=== PATIENT | female | born 1960 | race Caucasian/White ===

== ENCOUNTER 2021-05-26 15:22 | Outpatient (CLI) | payer OTHER, SELFPAY ==
--- NOTE | ~2021-05-26 | CT_ITS ---
EXAMINATION: CT abdomen pelvis wo con DATE: 05/26/2021 16:06 INDICATION: Abdominal pain TECHNIQUE: Computed tomography (CT) of the abdomen and pelvis was performed without intravenous contr ast. The dose-length product was 279.18 mGy-cm. Automated exposure control and iterative reconstructi on technique were employed. COMPARISON: CT dated 11/12/2013. FINDINGS: Lung bases are unremarkable. Heart size normal. No significant pleural or pericardial effus ion. No significant vascular abnormality. No lymphadenopathy. Small fat-containing umbilical hernia. The liver, spleen, pancreas, adrenal glands and kidneys are unremarkable. Gallbladder is present. Sma ll fat-containing umbilical hernia. There is a small right adnexal cyst, likely ovarian. No significa nt free fluid in the pelvis. No free air. Diverticulosis without evidence for diverticulitis. Normal appendix. No acute bone or joint abnormality. IMPRESSION: 1. No acute abdominal abnormality. Reviewed, dictated and finalized at location A.
== END 2021-05-26 15:23 | disposition home or self-care (01) ==
PROVIDERS: PCP Family Medicine; Visit Provider Nurse Practitioner
DX: R10.9 Unspecified abdominal pain (principal)
CPT/HCPCS: 74176

== ENCOUNTER → 2023-01-14 08:11 | Outpatient (CLI) | payer OTHER, SELFPAY ==
--- NOTE | ~2023-01-14 | CT_ITS ---
EXAMINATION: CT lung screening DATE: 01/14/2023 08:28 INDICATION: History of smoking. Tobacco dependence. TECHNIQUE: Computed tomography (CT) of the chest was performed without intravenous contrast. The dose -length product was 82.99 mGy-cm. Automated exposure control and iterative reconstruction technique w ere employed. COMPARISON: None FINDINGS: Heart size normal. No significant pleural or pericardial effusion. No thoracic lymphadenopa thy. Severe emphysema. There is apical pleural thickening/scarring. There is 2 mm right upper lobe no dule. No endobronchial lesions. There is mild thoracic spondylosis. There is irregular shaped soft ti ssue in the lung apices extending inferiorly into the lung parenchyma, most likely scarring. There is no pneumothorax. IMPRESSION: 1. . Lung-RADS category 3: Probably benign. Further evaluation is recommended with noncontrast low-do se chest CT in 6 months. Reviewed, dictated and finalized at location B. EM ARCHITECT IMPRESSION: 1. . Lung-RADS category 3: Probably benign. Further evaluation is recommended w ith noncontrast low-dose chest CT in 6 months.
== END ==
PROVIDERS: PCP Family Medicine; Visit Provider Family Medicine
DX: Z12.2 Encounter for screening for malignant neoplasm of respiratory organs (principal); Z87.891 Personal history of nicotine dependence; R91.8 Other nonspecific abnormal finding of lung field
CPT/HCPCS: 71271

== ENCOUNTER 2023-02-08 00:02 | Day surgery (SDC) | payer OTHER, SELFPAY ==
[2023-01-26 13:16] VITALS: BMI 22.8
[2023-02-08 08:17] VITALS: BP 111/66; PULSE 84; RESP 16; TEMP 36.4; O2SAT 98
[2023-02-08] MEDS: LACTATED RINGERS 1,000 ML 150 ML IV CONT (08:19)
--- NOTE | 2023-02-08 08:48 | PM.HPGS ---
History of Present Illness History of Present Illness Consent: Risks, benefits, and alternatives have been discussed and questions answered. Patient agrees to proceed with procedure. Chief complaint: hx colon polyps Narrative: Faye Kent is a 62 year old female Presents for screening colonoscopy. Patient has a prior history of colon polyps removed in 2019. Patient states that her weight appetite bowel movements are normal. She states that she has had some bright red blood per rectum after preparation for colonoscopy. She is previously known to have hemorrhoids. Patient denies abdominal or rectal pain. Review of Systems Review of Systems: Review of systems noncontributory. [facility] Past Medical History Medical History Anxiety Depression History of colon polyps Insomnia Orthostatic hypotension Surgical History Surgical History H/O removal of cyst (~1999) b/l breasts Social History Social History Social History: with one adult daughter. Unemployed. 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 Gender identity (if verbalized by the patient): Female Sexual Orientation (if Verbalized by the Patient): Straight or Heterosexual Spiritual care concerns: No Meds Home Medications and Allergies Home Medications Medication Instructions Recorded Confirmed Type albuterol sulfate 90 mcg/actuation 2 puff inhalation QID #18 grams 02/27/20 02/08/23 Rx aerosol inhaler multivit with 1 tablet PO DAILY 08/13/20 01/26/23 History utxjlkbp-spfx-RJ-lutein 8 mg iron-400 mcg-300 mcg tablet (Multivitamin Women 50 Plus) umeclidinium 62.5 mcg-vilanterol 1 inh inhalation DAILY #90 ea 01/10/23 02/08/23 Rx 25 mcg/actuation powdr for inhalation (Anoro Ellipta) Allergies Allergy/AdvReac Type Severity Reaction Status Date / Time No Known Allergies Allergy Mild Verified 02/08/23 08:14 Vital Signs Vital Signs - 24 hr 02/08/23 08:17 Temperature 97.6 F Pulse Rate 84 Respiratory Rate 16 Blood Pressure 111/66 Pulse Oximetry 98 Oxygen Delivery Room Air Exam Narrative: Physical exam reveals patient be alert. Vital signs stable. HEENT exam is unremarkable. Patient is anicteric. Lungs are clear to auscultation and percussion. Heart is without murmur or extra sounds. Abdomen bowel sounds are present soft nontender with no organomegaly. Digital external rectal exam normal. Assessment and Plan Assessment and plan (1) History of colon polyps: Code(s): Z86.010 - Personal history of colonic polyps Status: Acute Assessment and Plan: Patient has a history of colon polyps. Plan for surveillance colonoscopy now consider this at 5 year intervals. High-fiber diet advised. If bright red blood per rectum persists hemorrhoid surgery may need to be considered in the future.
--- NOTE | 2023-02-08 08:54 | WPDANESEPPF ---
Anes - Initial Pre Proc Eval Procedure: Operation Date: 02/08/23 09:30 Proposed Procedures p Colonoscopy - Garland Hilliard MD Date/Time: 02/08/23 08:54 Surgeon: Garland Hilliard MD Pre Op Diagnosis: hx colon polyps Patient Data Age: 62 Gender: F Height: 1.57 m Weight: 56.7 kg Last Vital Signs Temp 97.6 F 02/08/23 08:17 Pulse 84 02/08/23 08:17 Resp 16 02/08/23 08:17 BP 111/66 02/08/23 08:17 Pulse Ox 98 02/08/23 08:17 O2 Del Method Room Air 02/08/23 08:17 Allergies Allergy/AdvReac Type Severity Reaction Status Date / Time No Known Allergies Allergy Mild Verified 02/08/23 08:14 Home Medications Medication Instructions Recorded Confirmed Type albuterol sulfate 90 mcg/actuation 2 puff inhalation QID #18 grams 02/27/20 02/08/23 Rx aerosol inhaler multivit with 1 tablet PO DAILY 08/13/20 01/26/23 History fyqjmsbm-qelc-EZ-lutein 8 mg iron-400 mcg-300 mcg tablet (Multivitamin Women 50 Plus) umeclidinium 62.5 mcg-vilanterol 1 inh inhalation DAILY #90 ea 01/10/23 02/08/23 Rx 25 mcg/actuation powdr for inhalation (Anoro Ellipta) Patient hx anesthesia problems: none Family hx anesthesia problems: none Results Review: All pre-operative results and documents have been reviewed as part of the pre-operative evaluation. [facility] Past Medical History Medical History Anxiety Depression History of colon polyps Insomnia Orthostatic hypotension Surgical History Surgical History H/O removal of cyst (~1999) b/l breasts Social History Social History Social History: with one adult daughter. Unemployed. 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 Gender identity (if verbalized by the patient): Female Sexual Orientation (if Verbalized by the Patient): Straight or Heterosexual Spiritual care concerns: No Anes - Eval Final PreProcedure Day of Procedure 02/08/23 08:54 Patient weight: normal Heart: regular rate and rhythm Lungs: clear to auscultation Airway: Mallampati scale class II Neurological: alert and oriented Last oral intake: >/= 8 hours ASA classification: II Emergent: no Anesthetic plan: proceed Anesthesia type and monitoring: general Results Review: All pre-operative results and documents have been reviewed as part of the pre-operative evaluation. Informed Consent: The patient's anesthetic plan and its attendant risks and benefits were discussed with the patient/family/POA. Questions were solicited and answers provided to the satisfaction of the patient/family/POA.
[2023-02-08] MEDS: SIMETHICONE ORAL SUSPENSION 20 MG/0.3 ML 30 ML BOTTLE 0.6 ML IRRIGATION (09:39)
[2023-02-08 09:54] VITALS: BP 107/70; PULSE 82; RESP 24; TEMP 36.4; O2SAT 98
[2023-02-08 10:04] VITALS: BP 113/77; PULSE 65; RESP 28; TEMP 36.4; O2SAT 98
[2023-02-08 10:14] VITALS: BP 132/88; PULSE 85; RESP 26; TEMP 36.4; O2SAT 98
[2023-02-08 10:17] VITALS: BP 124/84; PULSE 80; RESP 19; TEMP 36.4; O2SAT 98
== END 2023-02-08 10:19 | disposition home or self-care (01) ==
PROVIDERS: PCP Family Medicine; Visit Provider Internal Medicine Gastroenterology
PROC: 0DJD8ZZ Inspection of Lower Intestinal Tract, Via Natural or Artificial Opening Endoscopic (ICD-10-PCS; CPT 45378; principal; 2023-02-08 09:30)
DX: Z12.11 Encounter for screening for malignant neoplasm of colon (principal); D12.5 Benign neoplasm of sigmoid colon; K57.30 Diverticulosis of large intestine without perforation or abscess without bleeding; K64.8 Other hemorrhoids; Z79.51 Long term (current) use of inhaled steroids; Z87.891 Personal history of nicotine dependence
CPT/HCPCS: 45380; 88305; J2704; J7120

== ENCOUNTER 2023-06-16 12:42 | Outpatient (CLI) | payer OTHER, SELFPAY ==
--- NOTE | ~2023-06-16 | XR_ITS ---
XR cervical spine 4-5V 06/16/2023 12:54 Indication: Neck pain. Right arm pain and numbness. Procedure: 4 view cervical spine Comparison: No prior studies for comparison. Findings: There is degenerative anterolisthesis at C4-5. There is disc narrowing and endplate hypertr ophy at C5-6 and C6-7. There is moderate multilevel facet and uncinate hypertrophy. Lung apices are n ormal. Odontoid process is normal. Lateral masses normally aligned. No prevertebral soft tissue swell ing. Impression: 1: Moderate cervical spondylosis. Reviewed, dictated and finalized at location A. Impression: 1: Moderate cervical spondylosis.
== END 2023-06-16 12:43 ==
PROVIDERS: PCP Family Medicine; Visit Provider Family Medicine
DX: G89.29 Other chronic pain (principal); M54.12 Radiculopathy, cervical region; M43.02 Spondylolysis, cervical region
CPT/HCPCS: 72050

== ENCOUNTER 2023-09-20 09:40 | Day surgery (SDC) | payer OTHER, SELFPAY ==
[2023-09-16 11:27] VITALS: BMI 21.7
--- NOTE | ~2023-09-20 | XR_ITS ---
Indication:bilateral C4, C5 and C6 medial branch block TECHNIQUE: Fluoroscopy used during bilateral C4, C5 and C6 medial branch block performed by [Chaitanya Wisdom MD] on 09/20/2023. 68 seconds with 4 fluoroscopic images captured. FINDINGS: Correlate with procedure note. IMPRESSION: Fluoroscopy used during bilateral C4, C5 and C6 medial branch block. Reviewed, dictated and finalized at location A. IMPRESSION: Fluoroscopy used during bilateral C4, C5 and C6 medial branch block .
--- NOTE | 2023-09-20 05:55 | PM.HPGS ---
History of Present Illness History of Present Illness Consent: Risks, benefits, and alternatives have been discussed and questions answered. Patient agrees to proceed with procedure. Chief complaint: Cervical Radiculopathy Narrative: Faye Kent is a 62 year old female with chronic, recalcitrant and activity limiting axial neck pain related to cervical spondylosis and cervical facet syndrome despite maximal conservative therapy over the past several years here for bilateral cervical medial branch blocks for diagnostic/prognostic purposes prior to consideration of thermal RF ablation under fluoroscopy.. Review of Systems Review of Systems: All systems reviewed & are unremarkable except as noted in HPI and below (Prior evaluation 07/19/23) PMFSH Past Medical History Medical History Anxiety Chronic neck pain Depression History of colon polyps Insomnia Orthostatic hypotension Surgical History Surgical History H/O removal of cyst (~1999) b/l breasts Social History Social History Social History: with one adult daughter. Unemployed. Smoking packs per day: 1 Smoking cigarettes per day: 20.0 Years smoked: 40 Smoking pack-years: 40.00 Smoking status: Former smoker Tobacco type: cigarettes Second hand tobacco smoke exposure: No Smoking end date: 02/23/18 Alcohol intake: unknown Substance use: never Substance use type: does not use Last use: about two years ago Lack of Transportation: No Lack of Food: Never True Current Housing: I Have Housing Concerned About Future Housing: No Difficulty Paying Gas/Electric Bills: No Difficulty Paying for Meds: No Currently Unemployed: No Education: High School Diploma/GED Difficulty w/ Childcare or Family Care: No Living arrangements: with family 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 Gender identity (if verbalized by the patient): Female Sexual Orientation (if Verbalized by the Patient): Straight or Heterosexual Spiritual care concerns: No Agree to blood products: Yes Meds Home Medications and Allergies Home Medications Medication Instructions Recorded Confirmed Type albuterol sulfate 2.5 mg/3 mL 2.5 mg (3 mL) inhalation Q4-6H PRN 06/15/23 09/16/23 Rx (0.083 %) solution for nebulization shortness of breath or wheezing #90 mL albuterol sulfate 90 mcg/actuation 2 puff inhalation QID PRN 06/15/23 09/16/23 Rx aerosol inhaler shortness of breath or wheezing #18 grams duloxetine 30 mg capsule,delayed 60 mg PO QHS #180 caps 08/10/23 09/16/23 Rx release umeclidinium 62.5 mcg-vilanterol 1 inh inhalation DAILY #90 ea 09/12/23 09/16/23 Rx 25 mcg/actuation powdr for inhalation (Anoro Ellipta) Allergies Allergy/AdvReac Type Severity Reaction Status Date / Time No Known Allergies Allergy Mild Verified 09/16/23 11:27 Exam Const: General: cooperative, healthy appearing, comfortable and no acute distress Nutritional Appearance: average body habitus Orientation/consciousness: patient oriented x3 HENMT: Head: normal to inspection Ears: hearing grossly normal bilaterally Face and sinus: normal facial exam Eyes: General: appearance normal, both eyes and all related structures Neck: Neck: normal visual inspection Chest: Chest palpation & inspection: normal inspection of the chest Resp: Effort & Inspection: normal respiratory effort Auscultation: clear to auscultation bilaterally Cardio: Rate: regular rate Rhythm: regular rhythm Peripheral pulses: Peripheral pulses 2+ throughout GI: Inspection: normal to inspection Back/Spine/Pelvis: Back: no CVA tenderness Cervical Spine: pain with cervical ROM and Cervical spine tenderness (bilateral mid to lower cervical facets.) Thoraci
[2023-09-20 10:49] VITALS: BP 104/44; PULSE 73; RESP 20; TEMP 36.8; O2SAT 99
[2023-09-20 13:05] VITALS: BP 118/76; PULSE 87; RESP 28; O2SAT 99
[2023-09-20 13:15] VITALS: BP 116/76; PULSE 72; RESP 17; O2SAT 99
[2023-09-20] MEDS: BUPivacaine HCL 0.5% 10 ML AMP 5 ML INFILTRATE (13:20)
[2023-09-20] MEDS: LIDOCAINE HCL 1% PF INJ 5 ML VIAL 4 ML INFILTRATE (13:20)
[2023-09-20 13:27] VITALS: BP 121/83; PULSE 69; RESP 18; O2SAT 100
--- NOTE | 2023-09-23 15:38 | W.PM.PROC2 ---
Procedure Note - Detailed Date of Procedure 09/20/23 Pre-op Diagnosis Cervical Spondylosis, Cervicalgia Post-op Diagnosis Same Procedure Performed Bilateral C4, C5, C6 medial branch blocks addressing the bilateral C4-5, C5-6 facet joints under fluoroscopy. Surgeon Flavio Wisdom MD Anesthesia Local Description of Procedure INFORMED CONSENT: Risks, benefits and alternatives to the procedure were discussed in detail with the patient who expressed explicit understanding and consent to proceed. Patient was informed verbally and in written form regarding the risks associated with the procedure including the low risk of serious infection, bleeding/bruising, allergic reaction, nerve or organ injury, paralysis, procedural site pain or discomfort, worsening pain and/or mobility, failure to treat and/or disfigurement. The patient expressed explicit understanding and consent to proceed. All materials required for the procedure were available prior to procedure start. Site and side were marked prior to procedure and confirmed in the presence of the patient. PROCEDURE IN DETAIL: The patient was brought to the procedural suite and placed in the prone position with head stabilized with a ProneView pillow. Patient was made comfortable with use of pillows under the head/chest, hips and ankles. Skin overlying the injection site on the affected side(s) was prepared broadly with ChloraPrep applicator and draped in a sterile manner. Aseptic technique was used throughout. The endplates of the vertebral bodies at the site(s) of interest were aligned in the AP view. Ipsilateral oblique angulation was utilized to optimize visualization of the pars interarticularis at each target site. Local anesthesia was established by infiltration with approximately 5 mL of 1% lidocaine via a 1-1/2 inch 27-gauge needle. A 25-gauge 3.5 inch Quincke spinal needle was advanced until the needle tip contacted the periosteum of the pars interarticularis at the target site, right C4. Lateral view was utilized to confirm the appropriate placement of the needle tip just anterior to the center point of the interarticularis. In the Lateral view, 0.25 mL of Omnipaque 300 contrast medium was injected after negative aspiration for CSF, blood or other bodily fluid, showing appropriate extra-articular spread of contrast without evidence of intravascular, foraminal or intrathecal placement. A 0.25 mL solution of 0.5% PF bupivacaine was injected after negative repeat aspiration. Appropriate spread of the injectate was confirmed with washout of previously injected contrast. No parasthesias were elicited. Needle was removed completely intact without difficulty. The same exact procedure was repeated for all remaining levels on the ipsilateral side, right C6,C7 medial branches, modified as necessary to accommodate for the new target location with identical findings and results and no evidence of complication. The same exact procedure was repeated for all remaining levels on the contralateral side, left C5, C6, C7 medial branches, modified as necessary to accommodate for the new target location with identical findings and results and no evidence of complication. Images were saved and documented in the patient chart. Patient's skin was cleansed and sterile bandage applied. The patient tolerated the procedure well. The patient was transported to the recovery area in stable condition where they were observed for an appropriate amount of time prior to discharge, without evidence of complication. Patient was instructed on the appropriate completion of a pain diary over the next 12-24 hours. The patient was instructed to avoid excessive activity for the next 48 hours, including climbing and frequent use of stairs. Showers only for 48 hours. They were instructed not to drive or operate heavy machinery for 24 hours. They are to monitor for severe headaches, fevers, chills, night sweats, erythema/swelling at the site or any other signs
== END 2023-09-20 13:50 | disposition home or self-care (01) ==
PROVIDERS: PCP Family Medicine; Visit Provider Anesthesiology Pain Medicine
PROC: (CPT 64490; principal; 2023-09-20 11:30)
DX: M47.812 Spondylosis without myelopathy or radiculopathy, cervical region (principal); M54.2 Cervicalgia
CPT/HCPCS: 64490; 64491; 99199

== ENCOUNTER 2023-10-18 08:16 | Day surgery (SDC) | payer OTHER, SELFPAY ==
[2023-10-11 12:04] VITALS: BMI 22.8
--- NOTE | ~2023-10-18 | XR_ITS ---
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 TECHNIQUE: 12 fluoroscopic images of the cervical spine were obtained during bilateral C4, C5, C6 med ial branch block. I was not present during the procedure. Fluoroscopy exposure time was 106.6 seconds . Air Kerma 8.77 mGy. COMPARISON: 09/20/2023 FINDINGS: Deputy approach the posterior lateral aspect of C4, C5, and C6, followed by contrast injection. IMPRESSION: Fluoroscopic documentation of bilateral C4, C5, C6 medial branch block. Please refer to the operative note for complete procedural details . Reviewed, dictated and finalized at location K. INJECTION SERVICER
--- NOTE | 2023-10-18 06:40 | WPDHPUPDATE1 ---
History and Physical Update Update Date/Time: 10/18/23 06:40 History and Physical has been reviewed, including an updated exam of the patient. There are NO changes in the patient's condition. Risks, benefits, and alternatives have been discussed and questions answered. Patient agrees to proceed with procedure.
[2023-10-18 09:00] VITALS: BP 108/59; PULSE 70; RESP 20; TEMP 36.6; O2SAT 100
--- NOTE | 2023-10-18 09:19 | W.PM.PROC2 ---
Procedure Note - Detailed Date of Procedure 10/18/23 Pre-op Diagnosis Cervical Spondylosis, chronic cervicalgia Post-op Diagnosis Same Procedure Performed bilateral C4, C5, C6 medial branch blocks (# 2) addressing the bilateral C4-5, C5-6 facet joints under fluoroscopic guidance with contrast trial. Surgeon Flavio Wisdom MD Anesthesia Local Description of Procedure INFORMED CONSENT: Risks, benefits and alternatives to the procedure were discussed in detail with the patient who expressed explicit understanding and consent to proceed. Patient was informed verbally and in written form regarding the risks associated with the procedure including the low risk of serious infection, bleeding/bruising, allergic reaction, nerve or organ injury, paralysis, procedural site pain or discomfort, worsening pain and/or mobility, failure to treat and/or disfigurement. The patient expressed explicit understanding and consent to proceed. All materials required for the procedure were available prior to procedure start. Site and side were marked prior to procedure and confirmed in the presence of the patient. PROCEDURE IN DETAIL: The patient was brought to the procedural suite and placed in the prone position with head stabilized with a ProneView pillow. Patient was made comfortable with use of pillows under the head/chest, hips and ankles. Skin overlying the injection site on the affected side(s) was prepared broadly with ChloraPrep applicator and draped in a sterile manner. Aseptic technique was used throughout. The endplates of the vertebral bodies at the site(s) of interest were aligned in the AP view. Ipsilateral oblique angulation was utilized to optimize visualization of the pars interarticularis at each target site. Local anesthesia was established by infiltration with approximately 5 mL of 1% lidocaine via a 1-1/2 inch 27-gauge needle. A 25-gauge 3.5 inch Quincke spinal needle was advanced until the needle tip contacted the periosteum of the pars interarticularis at the target site, right C4. Lateral view was utilized to confirm the appropriate placement of the needle tip just anterior to the center point of the interarticularis. In the Lateral view, 0.25 mL of Omnipaque 300 contrast medium was injected after negative aspiration for CSF, blood or other bodily fluid, showing appropriate extra-articular spread of contrast without evidence of intravascular, foraminal or intrathecal placement. A 0.25 mL solution of 2.0% preservative-free lidocaine was injected after negative repeat aspiration. Appropriate spread of the injectate was confirmed with washout of previously injected contrast. No parasthesias were elicited. Needle was removed completely intact without difficulty. The same exact procedure was repeated for all remaining levels on the ipsilateral side, right C5, C6 medial branches, modified as necessary to accommodate for the new target location with identical findings and results and no evidence of complication. The same exact procedure was repeated for all remaining levels on the contralateral side, left C4, C5, C6 medial branches, modified as necessary to accommodate for the new target location with identical findings and results and no evidence of complication. Images were saved and documented in the patient chart. Patient's skin was cleansed and sterile bandage applied. The patient tolerated the procedure well. The patient was transported to the recovery area in stable condition where they were observed for an appropriate amount of time prior to discharge, without evidence of complication. Patient was instructed on the appropriate completion of a pain diary over the next 12-24 hours. The patient was instructed to avoid excessive activity for the next 48 hours, including climbing and frequent use of stairs. Showers only for 48 hours. They were instructed not to drive or operate heavy machinery for 24 hours. They are to monitor for severe headaches, fevers
[2023-10-18 09:30] VITALS: BP 129/66; PULSE 63; RESP 12; O2SAT 98
[2023-10-18 09:35] VITALS: BP 113/20; PULSE 63; RESP 19; O2SAT 98
[2023-10-18 09:40] VITALS: BP 111/73; PULSE 65; RESP 23; O2SAT 98
[2023-10-18] MEDS: LIDOCAINE HCL 2% PF INJ 5 ML VIAL INFILTRATE (09:48)
[2023-10-18] MEDS: LIDOCAINE HCL 1% PF INJ 5 ML VIAL INFILTRATE (09:48)
[2023-10-18 09:50] VITALS: BP 127/77; PULSE 72; RESP 16; O2SAT 98
[2023-10-18 10:00] VITALS: BP 119/69; PULSE 71; RESP 18; O2SAT 100
== END 2023-10-18 10:04 | disposition home or self-care (01) ==
LOC: ASC 08:37
PROVIDERS: PCP Family Medicine; Visit Provider Anesthesiology Pain Medicine
PROC: (CPT 64490; principal; 2023-10-18 09:45)
DX: M47.812 Spondylosis without myelopathy or radiculopathy, cervical region (principal); M54.2 Cervicalgia
CPT/HCPCS: 64490; 64491; 64492; 99199

== ENCOUNTER 2023-12-20 05:51 | Day surgery (SDC) | payer OTHER, SELFPAY ==
[2023-12-13 11:53] VITALS: BMI 22.4
--- NOTE | 2023-12-19 16:58 | WPDANESEPPF ---
Anes - Initial Pre Proc Eval Procedure: Operation Date: 12/20/23 07:30 Proposed Procedures p Left C4, C5, C6 Medial Branch Thermal Radiofrequency Ablation under Fluoroscopic Guidance - Flavio Wisdom MD Date/Time: 12/19/23 16:58 Surgeon: Flavio Wisdom MD Pre Op Diagnosis: Cervical Spondylosis, cervicalgia Patient Data Age: 63 Gender: F Height: 1.55 m Weight: 54 kg Allergies Allergy/AdvReac Type Severity Reaction Status Date / Time No Known Allergies Allergy Mild Verified 12/20/23 06:20 Home Medications Medication Instructions Recorded Confirmed Type albuterol sulfate 2.5 mg/3 mL 2.5 mg (3 mL) inhalation Q4-6H PRN 06/15/23 12/13/23 Rx (0.083 %) solution for nebulization shortness of breath or wheezing #90 mL albuterol sulfate 90 mcg/actuation 2 puff inhalation QID PRN 06/15/23 12/20/23 Rx aerosol inhaler shortness of breath or wheezing #18 grams duloxetine 30 mg capsule,delayed 30 mg PO DAILY 10/11/23 12/20/23 History release umeclidinium 62.5 mcg-vilanterol 1 inh inhalation DAILY #90 ea 11/16/23 12/20/23 Rx 25 mcg/actuation powdr for inhalation (Anoro Ellipta) Patient hx anesthesia problems: none Family hx anesthesia problems: none Results Review: All pre-operative results and documents have been reviewed as part of the pre-operative evaluation. [facility] Past Medical History Medical History (Updated 12/19/23 @ 17:00 by Ash Oviedo DO) Anxiety Chronic neck pain COPD (chronic obstructive pulmonary disease) Depression History of colon polyps Insomnia Orthostatic hypotension Surgical History Surgical History H/O removal of cyst (~1999) b/l breasts Social History Social History Social History: with one adult daughter. Unemployed. Smoking packs per day: 1 Smoking cigarettes per day: 20.0 Years smoked: 40 Smoking pack-years: 40.00 Smoking status: Former smoker Tobacco type: cigarettes Second hand tobacco smoke exposure: No Smoking end date: 02/23/18 Alcohol intake: unknown Substance use: unknown Substance use type: does not use Last use: about two years ago Lack of Transportation: No Lack of Food: Never True Current Housing: I Have Housing Concerned About Future Housing: No Difficulty Paying Gas/Electric Bills: No Difficulty Paying for Meds: No Currently Unemployed: No Education: High School Diploma/GED Difficulty w/ Childcare or Family Care: No Living arrangements: with family 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 Gender identity (if verbalized by the patient): Female Sexual Orientation (if Verbalized by the Patient): Straight or Heterosexual Spiritual care concerns: No Agree to blood products: Yes Anes - Eval Final PreProcedure Day of Procedure 12/19/23 16:58 Patient weight: normal Heart: regular rate and rhythm Lungs: clear to auscultation and normal air movement Airway: Mallampati scale class II Neurological: alert and oriented Last oral intake: >/= 8 hours ASA classification: III Emergent: no Anesthetic plan: proceed Anesthesia type and monitoring: general GIVS and standard monitoring Results Review: All pre-operative results and documents have been reviewed as part of the pre-operative evaluation. Informed Consent: The patient's anesthetic plan and its attendant risks and benefits were discussed with the patient/family/POA. Questions were solicited and answers provided to the satisfaction of the patient/family/POA.
--- NOTE | ~2023-12-20 | XR_ITS ---
EXAMINATION: XR fluoroscopy no charge DATE: 12/20/2023 7:45 MUSIC SOUND LIGHT TECHNICIAN INDICATION: LEFT C4,C5,C6 THERMAL RAD ABLATION . TECHNIQUE: 8 fluoroscopic images and 6 cine clips of the cervical spine were obtained during left C4, C5, C6 with thermal ablation performed by the surgeon. I was not present during the procedure. Fluor oscopy exposure time was 25.7 seconds. Air Kerma 1.32 mGy. COMPARISON: None FINDINGS: [place] approach the posterior lateral aspect of the C4-C6 vertebral bodies. IMPRESSION: Fluoroscopic documentation of left C4, C5, C6 thermal ablation. Please refer to the operative note fo r complete procedural details . Reviewed, dictated and finalized at location K. C SOUND LIGHT TECHNICIAN IMPRESSION: Fluoroscopic documentation of left C4, C5, C6 thermal ablation. Please refer to the operative note for complete procedural details .
[2023-12-20 06:24] VITALS: BP 100/75; PULSE 73; RESP 20; TEMP 36.4; O2SAT 100
[2023-12-20] MEDS: LACTATED RINGERS 1,000 ML 30 ML IV CONT (06:32)
--- NOTE | 2023-12-20 06:37 | PM.HPGS ---
History of Present Illness History of Present Illness Consent: Risks, benefits, and alternatives have been discussed and questions answered. Patient agrees to proceed with procedure. Chief complaint: Cervical Spondylosis, cervicalgia Narrative: Faye Kent is a 63 year old female with chronic, recalcitrant and disabling Left cervical pain secondary to degenerative spondylosis with failure to respond to aggressive conservative measures including PT, oral and topical analgesics, opioid and nonopioid analgesics, rest, time and activity/behavioral modification over the past 1-2 years who presents for thermal radiofrequency ablation of the left C4, C5, C6 medial branches to denervate the left C4-5, C5-6 facet joints following appropriate duration of response respectively in both pain and activity tolerance/range of motion following a series of 2 diagnostic/prognostic medial branch blocks under fluoroscopic guidance and with contrast control. Review of Systems Review of Systems: Patient denies any new infectious, allergic, cardiopulmonary, neurologic or constitutional symptoms or changes in activity tolerance or exercise capacity including new or progressive SOB/JENKINS, peripheral edema, productive cough, dysuria, nausea/vomiting, diarrhea, weight change, fevers/chills/night sweats, new or progressive neurologic deficit, cognitive or mood changes since last seen, except as documented in the HPI. All systems reviewed & are unremarkable except as noted in HPI and below PMFSH Past Medical History Medical History (Updated 12/19/23 @ 17:00 by Ash Oviedo DO) Anxiety Chronic neck pain COPD (chronic obstructive pulmonary disease) Depression History of colon polyps Insomnia Orthostatic hypotension Surgical History Surgical History H/O removal of cyst (~1999) b/l breasts Social History Social History Social History: with one adult daughter. Unemployed. Smoking packs per day: 1 Smoking cigarettes per day: 20.0 Years smoked: 40 Smoking pack-years: 40.00 Smoking status: Former smoker Tobacco type: cigarettes Second hand tobacco smoke exposure: No Smoking end date: 02/23/18 Alcohol intake: unknown Substance use: unknown Substance use type: does not use Last use: about two years ago Lack of Transportation: No Lack of Food: Never True Current Housing: I Have Housing Concerned About Future Housing: No Difficulty Paying Gas/Electric Bills: No Difficulty Paying for Meds: No Currently Unemployed: No Education: High School Diploma/GED Difficulty w/ Childcare or Family Care: No Living arrangements: with family 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 Gender identity (if verbalized by the patient): Female Sexual Orientation (if Verbalized by the Patient): Straight or Heterosexual Spiritual care concerns: No Agree to blood products: Yes Meds Home Medications and Allergies Home Medications Medication Instructions Recorded Confirmed Type albuterol sulfate 2.5 mg/3 mL 2.5 mg (3 mL) inhalation Q4-6H PRN 06/15/23 12/13/23 Rx (0.083 %) solution for nebulization shortness of breath or wheezing #90 mL albuterol sulfate 90 mcg/actuation 2 puff inhalation QID PRN 06/15/23 12/20/23 Rx aerosol inhaler shortness of breath or wheezing #18 grams duloxetine 30 mg capsule,delayed 30 mg PO DAILY 10/11/23 12/20/23 History release umeclidinium 62.5 mcg-vilanterol 1 inh inhalation DAILY #90 ea 11/16/23 12/20/23 Rx 25 mcg/actuation powdr for inhalation (Anoro Ellipta) Allergies Allergy/AdvReac Type Severity Reaction Status Date / Time No Known Allergies Allergy Mild Verified 12/20/23 06:20 Vital Signs Vital Signs - 24 hr 12/20/23 06:24 Temperature 97.6 F Pulse Rate 73 Respirato
--- NOTE | 2023-12-20 06:44 | WPDHPUPDATE1 ---
History and Physical Update Update Date/Time: 12/20/23 06:44 History and Physical has been reviewed, including an updated exam of the patient. There are NO changes in the patient's condition. Risks, benefits, and alternatives have been discussed and questions answered. Patient agrees to proceed with procedure.
--- NOTE | 2023-12-20 06:45 | W.PM.PROC2 ---
Procedure Note - Detailed Date of Procedure 12/20/23 Pre-op Diagnosis Cervical Spondylosis, cervicalgia Post-op Diagnosis Same Procedure Performed left C4, C5, C6 medial branch thermal radiofrequency ablation denervating the left C4-5, C5-6 facet joints under fluoroscopic guidance. Surgeon Flavio Wisdom MD Anesthesia MAC and Local Description of Procedure INFORMED CONSENT: Risks, benefits and alternatives to the procedure were discussed in detail with the patient who expressed explicit understanding and consent to proceed. Patient was informed verbally and in written form regarding the risks associated with the procedure including the low risk of serious infection, bleeding/bruising, allergic reaction, nerve or organ injury, paralysis, procedural site pain or discomfort, worsening pain and/or mobility, failure to treat and/or disfigurement. The patient expressed explicit understanding and consent to proceed. All materials required for the procedure were available prior to procedure start. Site and side was marked prior to procedure and confirmed in the presence of the patient. PROCEDURE IN DETAIL: The patient was brought to the procedural suite and placed in the prone position with head stabilized with a ProneView pillow. Patient was made comfortable with use of pillows under the head/chest, hips and ankles. Skin overlying the injection site on the affected side(s) was prepared broadly with ChloraPrep applicator and draped in a sterile manner. Aseptic technique was used throughout. The endplates of the vertebral bodies at the site(s) of interest were aligned in the AP view. Ipsilateral oblique angulation was utilized to optimize visualization of the pars interarticularis at each target site. Local anesthesia was established by infiltration with approximately 5 mL of 1% lidocaine via a 1-1/2 inch 27-gauge needle. An 18-gauge 100mm RF needle with curved 10mm active tip was advanced in the AP view until the needle tip contacted the periosteum of the pars interarticularis at the target site, left C4 parallel to the course of the targeted branch. Lateral view was utilized to adjust and confirm the appropriate placement of the needle tip just anterior to the center point of the interarticularis, bisecting the distance between adjacent joint spaces. The appropriately-sized RF cannula was inserted into the RF needle and motor stimulation performed with no subjective or objective evidence of recruited muscle activity with stimulation up to 3.0 volts at a frequency of 2Hz. 0.5 mL solution of 2.0% PF lidocaine was injected after negative aspiration. Grounding electrode in place and functioning. After a 90s pause, lesioning was performed to 90 degrees centigrade for 90s ensuring lack of symptoms in the extremity throughout. Needle was withdrawn approcimately 1-2 mm and rotated 180 degrees. Lesioning repeated in a similar manner. Patient tolerated this well. No parasthesias were elicited. Needle was removed completely intact without difficulty. The same procedure was repeated for all intended levels/ structures on the ipsilateral side, left C5, C6, with identical methodology, modified to compensate for new location, with similar results and no evidence of complication. Patient tolerated this well. Images were saved and documented in the patient chart. Patient's skin was cleaned and sterile bandage applied. The patient tolerated the procedure well. The patient was transported to the recovery area in stable condition where they were observed for an appropriate amount of time prior to discharge, without evidence of complication. The patient was instructed to avoid excessive activity for the next 48 hours, including overhead work, reaching and device/computer usage. Showers only for 48 hours. They were instructed not to drive or operate heavy machinery for 24 hours. They are to monitor for severe headaches, fevers, chills, night sweats, erythema/swelling at the site or any ot
[2023-12-20] MEDS: LIDOCAINE HCL 2% PF INJ 5 ML VIAL INFILTRATE (07:50)
[2023-12-20] MEDS: BUPivacaine HCL 0.5% 10 ML AMP 5 ML INFILTRATE (08:06)
[2023-12-20] MEDS: LIDOCAINE HCL 1% PF INJ 5 ML VIAL XX (08:06)
[2023-12-20 08:20] VITALS: BP 90/66; PULSE 74; RESP 16; O2SAT 98
--- NOTE | 2023-12-20 08:25 | WPDANESPN ---
Anes - Prog Note Post-Op Date/Time: 12/20/23 08:25 Cardiovascular status: normal Respiratory status: normal Airway patency: baseline Mental status: baseline Post-Op hydration status: normal Vital Signs: Last Vital Signs Temp 36.4 C 12/20/23 06:24 Pulse 73 12/20/23 06:24 Resp 20 12/20/23 06:24 BP 100/75 12/20/23 06:24 Pulse Ox 100 12/20/23 06:24 O2 Del Method Room Air 12/20/23 06:24 Pain Score (VAS): 0 Post-procedural complaints: none Patient Feedback: Patient satisfied with anesthetic care. Other Findings: Patient vital signs back to baseline. Patient denies nausea and vomiting. Patient's pain under control. Patient OK for discharge.
[2023-12-20 08:43] VITALS: BP 99/72; PULSE 80; RESP 16; O2SAT 97
[2023-12-20 08:55] VITALS: BP 108/71; PULSE 70; RESP 16; O2SAT 98
[2023-12-20] MEDS: oxyCODONE HCL (*CRX) 5 MG TAB IR PO (08:55)
== END 2023-12-20 09:03 | disposition home or self-care (01) ==
PROVIDERS: PCP Family Medicine; Visit Provider Anesthesiology Pain Medicine
PROC: (CPT 64633; principal; 2023-12-20 07:30)
DX: M47.812 Spondylosis without myelopathy or radiculopathy, cervical region (principal); M54.2 Cervicalgia
CPT/HCPCS: 64633; 64634; 99199

== ENCOUNTER 2023-12-27 05:51 | Day surgery (SDC) | payer OTHER, SELFPAY ==
[2023-12-21 14:05] VITALS: BMI 24.0
--- NOTE | ~2023-12-27 | XR_ITS ---
EXAMINATION: XR fluoroscopy no charge INDICATION: Abnormal radiofrequency ablation on the right at C4, C5, and C6 TECHNIQUE: Seven intraoperative fluoroscopic images are submitted for review. Total fluoroscopic time is 19.6 seconds. COMPARISON: None available FINDINGS: Fluoroscopic images demonstrate needles at the level of the C4, C5, and C6 pedicles. Please refer to procedure note for full details. IMPRESSION: 1. Please refer to procedure note for full details. Reviewed, dictated and finalized at location L. 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
[2023-12-27 06:17] VITALS: BP 111/81; PULSE 69; RESP 20; TEMP 36.6; O2SAT 99
--- NOTE | 2023-12-27 07:12 | WPDANESEPPF ---
Anes - Initial Pre Proc Eval Procedure: Operation Date: 12/27/23 07:30 Proposed Procedures p Right C4, C5, C6 Medial Branch Thermal Radiofrequency Ablation under Fluoroscopic Guidance - Flavio Wisdom MD Date/Time: 12/27/23 07:12 Surgeon: Flavio Wisdom MD Pre Op Diagnosis: Cervical Spondylosis, Cervicalgia Patient Data Age: 63 Gender: F Height: 1.55 m Weight: 57.3 kg Allergies Allergy/AdvReac Type Severity Reaction Status Date / Time No Known Allergies Allergy Mild Verified 12/27/23 06:19 Home Medications Medication Instructions Recorded Confirmed Type albuterol sulfate 2.5 mg/3 mL 2.5 mg (3 mL) inhalation Q4-6H PRN 06/15/23 12/27/23 Rx (0.083 %) solution for nebulization shortness of breath or wheezing #90 mL albuterol sulfate 90 mcg/actuation 2 puff inhalation QID PRN 06/15/23 12/27/23 Rx aerosol inhaler shortness of breath or wheezing #18 grams duloxetine 30 mg capsule,delayed 30 mg PO DAILY 10/11/23 12/27/23 History release umeclidinium 62.5 mcg-vilanterol 1 inh inhalation DAILY #90 ea 11/16/23 12/27/23 Rx 25 mcg/actuation powdr for inhalation (Anoro Ellipta) Patient hx anesthesia problems: none Family hx anesthesia problems: none Results Review: All pre-operative results and documents have been reviewed as part of the pre-operative evaluation. [facility] Past Medical History Medical History Anxiety Chronic neck pain COPD (chronic obstructive pulmonary disease) Depression History of colon polyps Insomnia Orthostatic hypotension Surgical History Surgical History H/O removal of cyst (~1999) b/l breasts Social History Social History Social History: with one adult daughter. Unemployed. Smoking packs per day: 1 Smoking cigarettes per day: 20.0 Years smoked: 40 Smoking pack-years: 40.00 Smoking status: Former smoker Tobacco type: cigarettes Second hand tobacco smoke exposure: No Smoking end date: 02/23/18 Alcohol intake: never Substance use: never Substance use type: does not use Last use: about two years ago Lack of Transportation: No Lack of Food: Never True Current Housing: I Have Housing Concerned About Future Housing: No Difficulty Paying Gas/Electric Bills: No Difficulty Paying for Meds: No Currently Unemployed: No Education: High School Diploma/GED Difficulty w/ Childcare or Family Care: No Living arrangements: with family 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 Gender identity (if verbalized by the patient): Female Sexual Orientation (if Verbalized by the Patient): Straight or Heterosexual Spiritual care concerns: No Agree to blood products: Yes Anes - Eval Final PreProcedure Day of Procedure 12/27/23 07:12 Patient weight: normal Heart: regular rate and rhythm Lungs: decreased breath sounds Airway: Mallampati scale class II Neurological: alert and oriented Last oral intake: >/= 8 hours ASA classification: III Emergent: no Anesthetic plan: proceed Anesthesia type and monitoring: general GIVS and standard monitoring Results Review: All pre-operative results and documents have been reviewed as part of the pre-operative evaluation. Informed Consent: The patient's anesthetic plan and its attendant risks and benefits were discussed with the patient/family/POA. Questions were solicited and answers provided to the satisfaction of the patient/family/POA.
--- NOTE | 2023-12-27 07:13 | PM.HPGS ---
History of Present Illness History of Present Illness Consent: Risks, benefits, and alternatives have been discussed and questions answered. Patient agrees to proceed with procedure. Chief complaint: Cervical Spondylosis, Cervicalgia Narrative: Faye Kent is a 63 year old female with chronic, recalcitrant and disabling right Cervical pain secondary to degenerative spondylosis with failure to respond to aggressive conservative measures including PT, oral and topical analgesics, opioid and nonopioid analgesics, rest, time and activity/behavioral modification over the past 1-2 years who presents for thermal radiofrequency ablation of the right C4, C5, C6 medial branches to address the right C4-5, C5-6 facet joints under fluoroscopic guidance. Review of Systems Review of Systems: Patient denies any new infectious, allergic, cardiopulmonary, neurologic or constitutional symptoms or changes in activity tolerance or exercise capacity including new or progressive SOB/JENKINS, peripheral edema, productive cough, dysuria, nausea/vomiting, diarrhea, weight change, fevers/chills/night sweats, new or progressive neurologic deficit, cognitive or mood changes since last seen, except as documented in the HPI. All systems reviewed & are unremarkable except as noted in HPI and below PMFSH Past Medical History Medical History Anxiety Chronic neck pain COPD (chronic obstructive pulmonary disease) Depression History of colon polyps Insomnia Orthostatic hypotension Surgical History Surgical History H/O removal of cyst (~2000) b/l breasts Social History Social History Social History: with one adult daughter. Unemployed. Smoking packs per day: 1 Smoking cigarettes per day: 20.0 Years smoked: 40 Smoking pack-years: 40.00 Smoking status: Former smoker Tobacco type: cigarettes Second hand tobacco smoke exposure: No Smoking end date: 02/23/18 Alcohol intake: never Substance use: never Substance use type: does not use Last use: about two years ago Lack of Transportation: No Lack of Food: Never True Current Housing: I Have Housing Concerned About Future Housing: No Difficulty Paying Gas/Electric Bills: No Difficulty Paying for Meds: No Currently Unemployed: No Education: High School Diploma/GED Difficulty w/ Childcare or Family Care: No Living arrangements: with family 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 Gender identity (if verbalized by the patient): Female Sexual Orientation (if Verbalized by the Patient): Straight or Heterosexual Spiritual care concerns: No Agree to blood products: Yes Meds Home Medications and Allergies Home Medications Medication Instructions Recorded Confirmed Type albuterol sulfate 2.5 mg/3 mL 2.5 mg (3 mL) inhalation Q4-6H PRN 06/15/23 12/27/23 Rx (0.083 %) solution for nebulization shortness of breath or wheezing #90 mL albuterol sulfate 90 mcg/actuation 2 puff inhalation QID PRN 06/15/23 12/27/23 Rx aerosol inhaler shortness of breath or wheezing #18 grams duloxetine 30 mg capsule,delayed 30 mg PO DAILY 10/11/23 12/27/23 History release umeclidinium 62.5 mcg-vilanterol 1 inh inhalation DAILY #90 ea 11/16/23 12/27/23 Rx 25 mcg/actuation powdr for inhalation (Anoro Ellipta) Allergies Allergy/AdvReac Type Severity Reaction Status Date / Time No Known Allergies Allergy Mild Verified 12/27/23 06:19 Exam Narrative: The patient's physical exam is essentially unchanged from prior examination on 10/25/2023. Specifically, patient demonstrates normal lung capacity, tidal volume and respiratory rate without wheezes, crackles, rales or rubs. Heart rate and rhythm are regular without murmurs,
[2023-12-27] MEDS: LACTATED RINGERS 1,000 ML 30 ML IV CONT (07:17)
--- NOTE | 2023-12-27 07:17 | WPDHPUPDATE1 ---
History and Physical Update Update Date/Time: 12/27/23 07:17 History and Physical has been reviewed, including an updated exam of the patient. There are NO changes in the patient's condition. Risks, benefits, and alternatives have been discussed and questions answered. Patient agrees to proceed with procedure.
--- NOTE | 2023-12-27 07:17 | W.PM.PROC2 ---
Procedure Note - Detailed Date of Procedure 12/27/23 Pre-op Diagnosis Cervical Spondylosis, Cervicalgia Post-op Diagnosis Same Procedure Performed right C4, C5, C6 medial branch thermal radiofrequency ablation denervating the right C4-5, C5-6 facet joints under fluoroscopic guidance. Surgeon Flavio Wisdom MD Anesthesia MAC and Local Description of Procedure INFORMED CONSENT: Risks, benefits and alternatives to the procedure were discussed in detail with the patient who expressed explicit understanding and consent to proceed. Patient was informed verbally and in written form regarding the risks associated with the procedure including the low risk of serious infection, bleeding/bruising, allergic reaction, nerve or organ injury, paralysis, procedural site pain or discomfort, worsening pain and/or mobility, failure to treat and/or disfigurement. The patient expressed explicit understanding and consent to proceed. All materials required for the procedure were available prior to procedure start. Site and side was marked prior to procedure and confirmed in the presence of the patient. PROCEDURE IN DETAIL: The patient was brought to the procedural suite and placed in the prone position with head stabilized with a ProneView pillow. Patient was made comfortable with use of pillows under the head/chest, hips and ankles. Skin overlying the injection site on the affected side(s) was prepared broadly with ChloraPrep applicator and draped in a sterile manner. Aseptic technique was used throughout. The endplates of the vertebral bodies at the site(s) of interest were aligned in the AP view. Ipsilateral oblique angulation was utilized to optimize visualization of the pars interarticularis at each target site. Local anesthesia was established by infiltration with approximately 5 mL of 1% lidocaine via a 1-1/2 inch 27-gauge needle. An 18-gauge 100mm RF needle with curved 10mm active tip was advanced in the AP view until the needle tip contacted the periosteum of the pars interarticularis at the target site, Right C4 parallel to the course of the targeted branch. Lateral view was utilized to adjust and confirm the appropriate placement of the needle tip just anterior to the center point of the interarticularis, bisecting the distance between adjacent joint spaces. The appropriately-sized RF cannula was inserted into the RF needle and motor stimulation performed with no subjective or objective evidence of recruited muscle activity with stimulation up to 3.0 volts at a frequency of 2Hz. 0.5 mL solution of 2.0% PF lidocaine was injected after negative aspiration. Grounding electrode in place and functioning. After a 90s pause, lesioning was performed to 90 degrees centigrade for 90s ensuring lack of symptoms in the extremity throughout. Needle was withdrawn approcimately 1-2 mm and rotated 180 degrees. Lesioning repeated in a similar manner. Patient tolerated this well. No parasthesias were elicited. Needle was removed completely intact without difficulty. The same procedure was repeated for all intended levels/ structures on the ipsilateral side, right C5, C6 medial branches, with identical methodology, modified to compensate for new location, with similar results and no evidence of complication. Patient tolerated this well. Images were saved and documented in the patient chart. Patient's skin was cleaned and sterile bandage applied. The patient tolerated the procedure well. The patient was transported to the recovery area in stable condition where they were observed for an appropriate amount of time prior to discharge, without evidence of complication. The patient was instructed to avoid excessive activity for the next 48 hours, including overhead work, reaching and device/computer usage. Showers only for 48 hours. They were instructed not to drive or operate heavy machinery for 24 hours. They are to monitor for severe headaches, fevers, chills, night sweats, erythema/swelling
[2023-12-27] MEDS: LIDOCAINE HCL 1% PF INJ 5 ML VIAL XX (07:37)
[2023-12-27] MEDS: BUPivacaine HCL 0.5% 10 ML AMP INFILTRATE (07:40)
[2023-12-27 08:05] VITALS: BP 108/73; PULSE 80; RESP 16; O2SAT 100
[2023-12-27] MEDS: LIDOCAINE HCL 2% PF INJ 5 ML VIAL 3.5 ML INFILTRATE (08:06)
--- NOTE | 2023-12-27 08:15 | WPDANESPN ---
Anes - Prog Note Post-Op Date/Time: 12/27/23 08:15 Cardiovascular status: normal Respiratory status: normal Airway patency: baseline Mental status: baseline Post-Op hydration status: normal Vital Signs: Last Vital Signs Temp 36.6 C 12/27/23 06:17 Pulse 69 12/27/23 06:17 Resp 20 12/27/23 06:17 BP 111/81 12/27/23 06:17 Pulse Ox 99 12/27/23 06:17 O2 Del Method Room Air 12/27/23 06:17 Pain Score (VAS): 2 Patient Feedback: Patient satisfied with anesthetic care.
[2023-12-27 08:29] VITALS: BP 104/61; PULSE 70; RESP 16; O2SAT 98
--- NOTE | 2023-12-27 08:50 | SUR.PHASEII ---
0840 PT FINISHED GETTING DRESSED, COUGHING HARD. NONPRODUCTIVE. PT USED OWN ALBUTEROL INHALER. ENCOURAGED PURSED LIP BREATHING. SPOUSE AT BEDSIDE. 0848; PT NO LONGER HAVING HARD COUGH. PT STATES SHE FEELS GOOD NOW. MEETS DISCHARGE CRITERIA. RESP EVEN UNLABORED. PW,D, DENIES PAIN.
== END 2023-12-27 08:52 | disposition home or self-care (01) ==
PROVIDERS: PCP Family Medicine; Visit Provider Anesthesiology Pain Medicine
PROC: (CPT 64633; principal; 2023-12-27 07:30)
DX: M47.812 Spondylosis without myelopathy or radiculopathy, cervical region (principal); M54.2 Cervicalgia
CPT/HCPCS: 64633; 64634; 99199

== ENCOUNTER 2024-03-01 09:10 | Outpatient (CLI) | payer OTHER, SELFPAY ==
--- NOTE | 2024-03-05 10:19 | WPDSIXMINUTE ---
Six Minute Walk Procedure Procedure Performed Pulmonary Stress Test (6 min walk) Six Minute Walk Six Minute Walk: This is a 6 minute walk test. The test was performed and interpreted in accordance with the 2014 ERS/ATS task force guidelines. Findings: The patient's resting room air oxygen saturation measured by pulse oximetry was 96% and heart rate was 94 bpm. Patient ambulated for 396 meters and oxygen saturation remained 94 to 96%. Heart rate at the end of the study was 120 bpm. The patient did not qualify for supplemental oxygen at rest or with ambulation. There are no prior studies for comparison.
--- NOTE | 2024-03-05 10:20 | WPDPFTINT ---
PFT Procedure Performed PFT Procedure Performed Spirometry with Pre/Post Bronchodilator Plethysmography (Lung Vol) Diffusing Cap (DLCO) Flow Vol Loop PFT Interpretation This is a pulmonary function test with pre and post-bronchodilator spirometry, plethysmography and diffusing capacity. The test was performed and results interpreted in accordance with the 2019 and 2005 ATS/ERS Task Force guidelines respectively using the Global Lung Function Initiative-2012 reference equations. Patient demonstrated good effort and cooperation. Reproducibility criteria were met. The quality of the pre bronchodilator spirometry maneuver was Grade A and post bronchodilator spirometry maneuver was Grade A. Findings: Spirometry: There is decreased maximal expiratory airflow at all lung volumes with concave expiratory flow tracing. The contour the inspiratory flow tracing is normal. The pre bronchodilator FVC is 2.54 L, 90% predicted. The pre bronchodilator FEV1 is 1.21 L, 54% predicted. The pre bronchodilator FEV1: FVC ratio is 47%. The post bronchodilator FVC is 2.49 L, representing a 2% decrease. The post bronchodilator FEV1 is 1.23 L, representing a 2% increase. The post bronchodilator FEV1: FVC ratio is 49%. Plethysmography: The total lung capacity is 5.39 L, 114% predicted. The functional residual capacity is 3.46 L, 130% predicted. The residual volume is 2.84 L, 147% predicted. The residual volume: Total lung capacity ratio is 53%. Diffusing capacity: The diffusing capacity unadjusted for hemoglobin and carboxyhemoglobin is 9.9, 49% predicted. The diffusing capacity adjusted for alveolar volume is 2.77, 62% predicted. In comparison to previous pulmonary function testing on 11/07/2019 the post bronchodilator FVC is unchanged from 2.19 L to 2.49 L. The post bronchodilator FEV1 is unchanged from 1.09 L to 1.23 L. The total lung capacity is unchanged from 5.79 L to 5.39 L. The functional residual capacity is unchanged from 4.09 L to 3.46 L. The residual volume is unchanged from 3.12 L to 2.84 L. The diffusing capacity unadjusted for hemoglobin and carboxyhemoglobin is unchanged from 11.0 to 9.9. The diffusing capacity adjusted for alveolar volume is unchanged from 3.01 to 2.77. Impression: There is a moderately severe obstructive abnormality. There is no significant improvement after inhaling a single dose of albuterol. The increase in residual volume to total lung volume ratio is consistent with hyperinflation from an obstructive abnormality. The diffusing capacity unadjusted for hemoglobin and carboxyhemoglobin is moderately decreased and remains mildly decreased when adjusted for alveolar volume. When compared to previous pulmonary function testing on 11/07/2019 there has been no significant change in the FVC, FEV1, total lung capacity, functional residual capacity, residual volume or diffusing capacity. Clinical correlation is recommended.
== END 2024-03-01 09:11 | disposition home or self-care (01) ==
PROVIDERS: PCP Family Medicine; Visit Provider Physician Assistant
DX: J44.9 Chronic obstructive pulmonary disease, unspecified (principal); Z87.891 Personal history of nicotine dependence
CPT/HCPCS: 94060; 94618; 94726; 94729

== ENCOUNTER 2024-05-01 09:00 | Observation (INO) | payer OTHER, SELFPAY ==
[2024-05-01] VITALS (15 sets, daily range): BP systolic 98–125; BP diastolic 47–82; PULSE 69–114; RESP 16–22; TEMP 36.5–36.8; O2SAT 91–100; BMI 22.4
--- NOTE | ~2024-05-01 | MR_ITS ---
EXAMINATION: MR brain/brain stem wo con DATE: 05/02/2024 11:00 INDICATION: Vertigo. Changes in kidneys. TECHNIQUE: Magnetic resonance imaging (MRI) of the brain and brainstem was performed without intraven ous contrast. Sequences included sagittal and axial T1-weighted SE, axial diffusion-weighted FS SE, a xial 3D SWAN, axial T2-weighted FLAIR, and axial T2-weighted FSE. Apparent diffusion coefficient (ADC ) maps were created. COMPARISON: None. FINDINGS: There are no areas of restricted diffusion to suggest acute infarction. No intracranial hemorrhage or abnormal intracranial mass lesion. There are scattered areas of nonspecific increased T2-weighted si gnal intensity in the cerebral white matter, predominantly involving the deep and periventricular whi te matter which is within normal limits for age and likely sequela of chronic small vessel ischemic d isease. There are no intraparenchymal signal abnormalities seen on the other pulse sequences. The peg tricles are symmetric and normal in size. There are no abnormal extra-axial fluid collections. Flow v oids are seen in the cerebral arteries on the T2-weighted sequences consistent with their expected pa tency. Visualized orbits and soft tissues are unremarkable. IMPRESSION: 1. Normal aging brain with a few scattered nonspecific foci of less white matter T2 hyperintensity wh ich are likely sequela of chronic small vessel ischemic disease. No acute intracranial process. Reviewed, dictated and finalized at location A. IMPRESSION: 1. Normal aging brain with a few scattered nonspecific foci of less white matte r T2 hyperintensity which are likely sequela of chronic small vessel ischemic d isease. No acute intracranial process.
--- NOTE | ~2024-05-01 | CT_ITS ---
CTA brain carotid Ordering provider: Shahrzad Salas PA-C History: . dizziness . Comparison: None. Technique: CT angiogram head and neck was performed following timed intravenous injection of contrast . Thin slice axial images and reformatted coronal images were obtained. Three dimensional reformatted images of the brain were also obtained using a [employer] workstation. Radiation reduction technique ut ilized. FINDINGS: HEAD: --ANTERIOR AND MIDDLE CEREBRAL ARTERIES AND BRANCHES: Normal caliber and contour. --INTERNAL CAROTID ARTERIES: Mild atheromatous disease but no significant stenosis. No occlusion. --BASILAR ARTERY AND BRANCHES: Normal caliber and contour. No atheromatous disease. --POSTERIOR CEREBRAL ARTERIES: Normal caliber and contour --POSTERIOR COMMUNICATING ARTERIES: Not visualized which is probably related to congenital absence or small size. --ANEURYSM: None visualized. --BRAIN: No evidence of acute hemorrhage or infarct seen. Empty sella turcica. --BONES AND SUPERFICIAL SOFT TISSUES: Normal. --PARANASAL SINUSES AND MASTOIDS: Normal. NECK: --RIGHT CERVICAL CAROTID SYSTEM: Normal. Percent stenosis per NASCET criteria is 0%. No carotid diss ection. Otherwise, no significant atheromatous disease or stenosis of the cervical carotid system. --LEFT CERVICAL CAROTID SYSTEM: Normal.. Percent stenosis per NASCET criteria is 0%. No carotid diss ection. Otherwise, no significant atheromatous disease or stenosis of the cervical carotid system. --VERTEBRAL ARTERIES: Normal caliber and contour. --VISUALIZED AORTIC ARCH AND BRANCHING VESSELS: Normal.--SOFT TISSUES: Normal. --CERVICAL SPINE: Age appropriate degenerative changes. Degenerative disc disease at the level of C5- C6 and C6-C7. Pleural thickening in the apical areas. Emphysematous changes of the lungs. IMPRESSION: 1. Normal CTA head and neck. Percent stenosis per NASCET criteria is 0%. 2. No definite abnormality seen in the brain Reviewed, dictated and finalized at location A.
--- NOTE | ~2024-05-01 | XR_ITS ---
XR chest 2V Ordering provider: Shahrzad Salas PA-C History: 63 years Female with . near-syncope, VOMITING, CHILLS, NAUSEA . Comparison: June 03, 2016 FINDINGS: MEDIASTINUM: The cardiac silhouette is not enlarged. LUNGS: No effusions or pneumothorax. Prominent markings in the lower lobes. Early pneumonia cannot be excluded. OTHER: No free air under the diaphragm. IMPRESSION: Prominent markings in the lower lobes. Early pneumonia cannot be excluded. Reviewed, dictated and finalized at location A.
--- NOTE | 2024-05-01 09:11 | ECG_ITS ---
Test Date: 2024-05-01 09:09:40 Measurements Intervals [place] Rate: 93 P: 79 ID: [id number] QRS: 62 QRSD: 94 T: 69 QT: 364 QTc: 455 Interpretive Statements SINUS RHYTHM INCOMPLETE RIGHT BUNDLE BRANCH BLOCK [90+ ms QRS DURATION, TERMINAL R IN V1/V2, 40+ ms S IN I/aVL/V4/V5/V6] No previous ECG available for comparison Electronically Signed On 05-01-2024 10:53:38 CDT by Gama Tabor M.D.
--- NOTE | 2024-05-01 09:13 | ED.NAVMDI ---
HPI - Nausea/Vomiting/Diarrhea General Chief complaint: Nausea/Vomiting/Diarrhea Stated complaint: n/v, near syncope x 5 hours Time Seen by Provider: 05/01/24 09:10 Source: patient Mode of arrival: EMS Limitations: no limitations History of Present Illness HPI Narrative: This is a 63-year-old female that presents to the emergency department for dizziness. Ongoing over the last several days. Reports she is largely fine during the day. At night she wakes up feeling very hot, with chills, sweating, and dizziness. Reports room spinning dizziness. This causes her to vomit. She has had these episodes the last several nights. Does report history of orthostatic hypotension. Reports she has suffered with dizziness since she was young, but this has been we worse than usual. Reports a productive cough and history of COPD. Denies chest pain, shortness of breath or palpitations. Related Data Allergies Allergy/AdvReac Type Severity Reaction Status Date / Time No Known Allergies Allergy Mild Verified 02/22/24 13:00 Review of Systems Review of Systems: CONSTITUTIONAL: Reports sweats. Denies fever EYES: Denies visual changes CARDIOVASCULAR: Denies chest pain, palpitations, or edema. RESPIRATORY: Denies dyspnea. GASTROINTESTINAL: Denies vomiting MUSCULOSKELETAL: Reports joint pain, and myalgia. NEUROLOGIC: Denies headache, numbness, or weakness. All systems reviewed & are unremarkable except as noted in HPI and below PMFSH Past Medical History Medical History Anxiety Chronic neck pain COPD (chronic obstructive pulmonary disease) Depression History of colon polyps Insomnia Orthostatic hypotension Surgical History Surgical History H/O removal of cyst (~1999) b/l breasts Social History Social History Social History: with one adult daughter. Unemployed. Smoking packs per day: 1 Smoking cigarettes per day: 20.0 Years smoked: 40 Smoking pack-years: 40.00 Smoking status: Former smoker Second hand tobacco smoke exposure: No Alcohol intake: never Substance use: never Substance use type: does not use Last use: about two years ago Lack of Transportation: No Lack of Food: Never True Current Housing: I Have Housing Concerned About Future Housing: No Difficulty Paying Gas/Electric Bills: No Difficulty Paying for Meds: No Currently Unemployed: No Education: High School Diploma/GED Difficulty w/ Childcare or Family Care: No Living arrangements: with family 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 HEAD: Normocephalic, atraumatic. EYES: PERRLA and EOMI. ENT: Nares clear, no rhinorrhea or epistaxis. Mucous membranes moist. Oropharynx without tonsillar hypertrophy exudate or other lesions. Bilateral TMs pearly morillo non-bulging NECK: Supple. No adenopathy or masses. No JVD CHEST: Clear to auscultation. No respiratory distress. No wheezes rales or rhonchi HEART: Regular rate and rhythm. No murmur heard. Normal peripheral pulses. EXTREMITIES: Normal range of motion. No edema. Strength equal in bilateral upper and lower extremities (5/5) SKIN: Warm, dry, no rash. NEURO: No focal deficits. Alert and oriented x3. CN II-XII grossly intact PSYCH: Normal mood and affect Course Course Emergency Course: Patient updated on workup. Reports continued dizziness after hydration and meclizine Consultations Consultation #1: Spoke with hospitalist about patient and workup who accepts admission Date: 0
[2024-05-01 09:29] LABS: Basophils Percent Auto 0.4 % (0.2-1.2); Eosinophils Absolute Auto 0.1 K/mm3 (0-0.3); Eosinophils Percent Auto 0.5 % (0-4.4); Hematocrit 42.5 % (37.0-47.0); Hemoglobin 13.9 g/dL (12.0-15.0); Immature Granulocyte Absolute 0.02 K/mm3 (0.00-0.031); Immature Granulocyte Percent A 0.2 % (0-0.5); Lymphocytes Absolute Auto 1.48 K/mm3 (0.9-3.2); Lymphocytes Percent Auto 14.6 % (18.3-44.2); Mean Corpuscular HGB Conc 32.7 g/dl (32-36); Mean Corpuscular Hemoglobin 30.8 pg (26-34); Mean Platelet Volume 9.5 fl (7.4-10.4); Monocytes Absolute Auto 0.7 K/mm3 (0.1-0.6); Monocytes Percent Auto 7.1 % (2.6-8.5); Neutrophils Absolute Auto 7.9 K/mm3 (1.3-6.7); Neutrophils Percent Auto 77.2 % (45.5-73.1); Platelet Count Result 293 k/mm3 (150-375); Red Blood Count 4.52 M/mm3 (4.2-5.4); Red Cell Distribution Width 12.5 % (11.5-14.5); White Blood Count 10.2 K/mm3 (4.5-10.0)
[2024-05-01 09:58] LABS: Alanine Aminotransferase 16 U/L (6-35); Albumin Level 4.3 g/dL (3.5-5.1); Alkaline Phosphatase 87 U/L (38-126); Anion Gap 6 mmol/L (4-12); Aspartate Amino Transferase 23 U/L (14-36); Bilirubin,Total 0.5 mg/dL (0.2-1.3); Blood Urea Nitrogen 16 mg/dL (7-17); Calcium 9.1 mg/dL (8.4-10.2); Carbon Dioxide 25 mmol/L (22-30); Chloride 110 mmol/L (98-107); Estimated CRCL calculation 47 ml/min; Estimated Glomerular Filt Rate > 60; Glucose 123 mg/dL (65-110); Lipase 173 U/L (23-300); Sodium 141 mmol/L (137-145)
[2024-05-01 10:30] LABS: Appearance Urine Clear (Clear); Bacteria Urine None Seen /hpf; Bilirubin Urine Negative (Negative); Blood Urine Non-Hemolyzed Trace (Negative); Color Urine Yellow (Yellow); Glucose Urine UA Negative (Negative); Ketones Urine Trace mg/dL (Negative); Leukocyte Esterase Ur Negative LEU/UL (Negative); Need Manual Microscopic Reviewed; Nitrate Urine Negative (Negative); Non Pathogenic Casts 0-2; Protein Urine Negative (Negative); Specific Grav Ur 1.022 (1.001-1.035); Squamous Epithelial Cell Urine None Seen /hpf (Few); WBC Urine 0-5 /hpf (0-3); pH Urine 6.5 (5.0-9.0)
[2024-05-01 10:36] LABS: Add Urine Microscopic? YES
[2024-05-01 11:01] LABS: Magnesium 2.1 mg/dL (1.6-2.3)
[2024-05-01] MEDS: FAMOTIDINE 20 MG/2 ML VIAL IV PUSH (11:01)
[2024-05-01] MEDS: MECLIZINE HCL 25 MG TABLET PO (11:01)
[2024-05-01] MEDS: ONDANSETRON INJ 4 MG/2 ML VIAL IV PUSH (11:02)
[2024-05-01] MEDS: SODIUM CHLORIDE 0.9% IV 1,000 ML 999 ML IV CONT ×2 (11:02→11:55)
[2024-05-01] MEDS: AZITHROMYCIN 500 MG/NS 250 ML 500 MG/250 ML BAG 250 MG IVPB (14:23)
--- NOTE | 2024-05-01 15:19 | PM.IMHP ---
H&P: HPI History of Present Illness Date/Time: 05/01/24 15:19 Chief Complaint: Nausea, vomiting, tremors and shaking for 2 days Narrative: 63-year-old female with a past medical history of chronic neck pain, COPD anxiety and depression as well as chronic orthostatic hypotension who presented to the ER with nausea, vomiting and dizziness. The patient reports that she has a longstanding history of orthostatic hypotension and is not unusual for to have episodes of near-syncope but last evening she developed an episode of severe vertigo. She reports that the room was overtly spinning. In hindsight the vertiginous symptoms seemed worse when she would look to her right side or late her right side. She has had history of the vertigo in the past but she always presumed that it was due to her history of orthostatic hypotension. She denied any proceeding viral symptoms. She has been having some diplopia and reports that shadow or outline of images that is become a new normal for her vision. Diplopia is a new finding just in the last 24 hours. She has routine vision screening is performed each year. She reports that she does have a cough but her cough is chronic. She usually has a cough that is productive of a small amount of clear phlegm. Otherwise her cough has not changed. She does not feel any more short of breath than her baseline. She reports that with her last coughing episode after she was admitted her cough was dry but she admits she has not used her inhalers in 24 hours. She has been so vertiginous that she has had multiple episodes of vomiting and dry heaves. Accompanying the sensation of vertigo was been intermittent episodes of hot flashes and chills. However she has been afebrile since presentation. She denies any ill contacts. She does have a longstanding history of tinnitus but she reports that she has been having increasing ringing in her right ear for the last day or so. The ringing is so bad that it is become intrusive. She does also reported a sensation of fullness in the right ear which is new. She denies any chest pain or palpitations. She had a CTA of the head and neck in the ER which was negative for occlusion. Chest x-ray in the ER prominent markings in the lower lobes cannot exclude pneumonia. Review of Systems Review of Systems: 12 systems were reviewed with pertinent positives and negatives per HPI. Except as documented in the HPI, all other systems were reviewed and are negative. [facility] Past Medical History Medical History (Updated 05/01/24 @ 17:27 by Dayanara Lewis DO) Anxiety Chronic neck pain COPD (chronic obstructive pulmonary disease) Depression History of colon polyps Insomnia Orthostatic hypotension Surgical History Surgical History (Updated 05/01/24 @ 17:27 by Dayanara Lewis DO) H/O removal of cyst (~2000) b/l breasts History of radiofrequency ablation (RFA) of nerve of cervical spine C4-5 and 6 Social History Social History (Updated 05/01/24 @ 17:22 by Dayanara Lewis DO) Social History: She lives with her of 44 years. They have a daughter. They also have 12 cats. The patient smoked at least 1 pack of cigarettes per day from the time she was a teenager into February of 2018. She denies any history of alcohol or illicit substance use. She is unemployed. Code status: Full code Surrogate decision maker: Theodore () Smoking packs per day: 1 Smoking cigarettes per day: 20.0 Years smoked: 40 Smoking pack-years: 40.00 Smoking status: Former smoker Second hand tobacco smoke exposure: No Alcohol intake: never Substance use: never Substance use type: does not use Last use: about two years ago Do You Feel Safe in your Home?: Yes Lack of Transportation: No Lack of Food: Never True Current Housing: I Have Housing Concerned About Future Housing: No Difficulty Paying Gas/Electric Bills: No Difficulty Paying for Meds: No Currently
--- NOTE | 2024-05-01 15:21 | PC.NURSE ---
This patient, Faye Kent, was admitted to Medical Room 340-01. Patient/family oriented to hospital policies and general routines including ID bracelet, bed and alarms, visiting hours, pain management, procedures, bathroom and other care routines, personal items, smoking policy, room service/diet, and visiting hours. Information on how to activate the Rapid Response Team has been discussed. Patient/Family are encouraged to report perceived risks to care and to ask questions if they do not understand what they are told or what they should do.
[2024-05-01] MEDS: IPRATROPIUM BR 0.02% INH SOLN 0.5 MG/2.5 ML VIAL INHALATION (20:02)
[2024-05-01] MEDS: LEVALBUTEROL NEB 1.25 MG/3 ML 0.63 MG INHALATION (20:02)
[2024-05-02] VITALS (19 sets, daily range): BP systolic 109–120; BP diastolic 59–95; PULSE 80–112; RESP 18–21; TEMP 36.1–36.9; O2SAT 98–99
[2024-05-02] MEDS: LEVALBUTEROL NEB 1.25 MG/3 ML 0.63 MG INHALATION ×4 (03:11→20:15)
[2024-05-02] MEDS: IPRATROPIUM BR 0.02% INH SOLN 0.5 MG/2.5 ML VIAL INHALATION ×4 (03:11→20:15)
[2024-05-02] MEDS: UMECLIDINIUM/VILANTEROL 62.5-25 MCG ELLIPTA 1 PUFF INHALATION (07:57)
--- NOTE | 2024-05-02 08:06 | PM.IMPN ---
Progress Note: A&P Assessment and Plan (1) Vertigo: Code(s): R42 - Dizziness and giddiness Status: Acute Assessment and Plan: Subjective room spinning with position changes and ambulation. Brain MRI shows normal aging brain with microvascular ischemic changes. Lipid panel ordered. Would recommend starting statin and ASA 81mg. Will have shared decision making regarding this. Will ask PT to see her for Eply Maneuver Adding meclizine (2) Dysconjugate gaze: Code(s): H51.8 - Other specified disorders of binocular movement Status: Acute Assessment and Plan: MRI negative for stroke, tumor (3) Abnormal chest x-ray: Code(s): R93.89 - Abnormal findings on diagnostic imaging of other specified body structures Status: Acute Assessment and Plan: Patient feels her breathing is at it's baseline. Denies increased cough, sputum, or shortness of breath. She coughs a lot at night but this is her baseline. (4) Orthostatic hypotension: Code(s): I95.1 - Orthostatic hypotension Status: Acute Assessment and Plan: Improved after fluid hydration. Patient may have autonomic dysfunction contributing to this. Encouraged her to speak with her PCP about possible POTS diagnosis and treatment with midodrine, florinef, etc. Blood pressures currently are 115/65, HR 99 (5) COPD (chronic obstructive pulmonary disease): Qualifiers: COPD type: unspecified COPD Qualified Code(s): J44.9 - Chronic obstructive pulmonary disease, unspecified Code(s): J44.9 - Chronic obstructive pulmonary disease, unspecified Status: Chronic Assessment and Plan: Stable. Continue home inhaler and nebs. Subjective Date/time seen: 05/02/24 08:06 Interval history: 63-year-old female with a past medical history of chronic neck pain, COPD anxiety and depression as well as chronic orthostatic hypotension who presented to the ER with nausea, vomiting and dizziness. 05/02: Mrs. Kent is doing okay today. She is still having severe vertigo with position changes. She describes the room spinning uncontrollably with movement. She still has a dysconjugate gaze when looking to the right. Her brain MRI is negative for acute stroke or tumor but does show microvascular vessel ischemic disease. Suspect she may have some inner ear pathology contributing to her symptoms. Her orthostatic vital signs were initially positive but have normalized after IV fluid resuscitation. Will plan on having PT see her for possible Eply maneuver and trial meclizine. She has remained in normal sinus rhythm , no ectopy on telemetry. Review of Systems Review of Systems: 12 systems were reviewed with pertinent positives and negatives per HPI. Except as documented in the HPI, all other systems were reviewed and are negative. Exam Narrative: General: well appearing, thin, appears stated age. HEENT: normocephalic, atraumatic. Mucous membranes moist. EOMI, PERRLA, bilateral sclera anicteric, no conjunctival injection. Neck supple without JVD, lymphadenopathy, or bruit. Respiratory: clear to auscultation bilaterally. No rales/rhonic/wheezes. Cardiovascular: Regular rate and rhythm, normal S1-S2 upon auscultation. No murmurs, rubs, or clicks. PMI is nondisplaced, capillary refill less than 3 second. Abdomen: Soft, round, no pulsatile masses, nondistended and nontender. No rebound, no guarding. No CVA tenderness, no hepatosplenomegaly. Bowel sounds present to all four quadrants. No high pitch or tinkling sounds, resonant to percussion. Extremities: No cyanosis, clubbing, or edema present. Pulses are palpable 2/2. Active ROM to all four extremities. Neuro: Alert and orientated x 4. PERRLA. Cranial nerves 2-12 intact without focal deficit. Skin: Warm, dry, and intact, without rash, erythema, or lesion. Lines: Incisions: Psych: pleasant, cooperative, normal speech, normal affect, no hallucinations, no dysarthria
[2024-05-02] MEDS: ENOXAPARIN 40 MG/0.4 ML SYRINGE SUB-Q (08:42)
[2024-05-02] MEDS: MECLIZINE HCL 25 MG TABLET PO (14:16)
[2024-05-02 15:21] LABS: Cholesterol 163 mg/dL (0-200); HDL Direct 41 mg/dL; Triglycerides 120 mg/dL (<150)
[2024-05-02 15:32] LABS: LDL Cholesterol Direct 103 mg/dL
[2024-05-03] VITALS (8 sets, daily range): BP systolic 112; BP diastolic 67; PULSE 71–87; RESP 18; TEMP 36.1; O2SAT 97–98
[2024-05-03] MEDS: IPRATROPIUM BR 0.02% INH SOLN 0.5 MG/2.5 ML VIAL INHALATION ×2 (01:33→08:19)
[2024-05-03] MEDS: LEVALBUTEROL NEB 1.25 MG/3 ML 0.63 MG INHALATION ×2 (01:33→08:19)
[2024-05-03] MEDS: UMECLIDINIUM/VILANTEROL 62.5-25 MCG ELLIPTA 1 PUFF INHALATION (08:19)
--- NOTE | 2024-05-03 08:32 | PM.DS ---
DS: Admitting Diagnosis Discharge Date 05-03 Admitting Diagnosis Dizziness DS: Discharge Diagnosis Discharge Diagnosis (1) Vertigo: Code(s): R42 - Dizziness and giddiness Status: Acute Assessment and Plan: Subjective room spinning with position changes and ambulation. Brain MRI shows normal aging brain with microvascular ischemic changes. Lipid panel ordered. Would recommend starting statin and ASA 81mg. Will have shared decision making regarding this. Will ask PT to see her for Eply Maneuver Adding meclizine (2) Dysconjugate gaze: Code(s): H51.8 - Other specified disorders of binocular movement Status: Acute Assessment and Plan: MRI negative for stroke, tumor (3) Abnormal chest x-ray: Code(s): R93.89 - Abnormal findings on diagnostic imaging of other specified body structures Status: Acute Assessment and Plan: Patient feels her breathing is at it's baseline. Denies increased cough, sputum, or shortness of breath. She coughs a lot at night but this is her baseline. (4) Orthostatic hypotension: Code(s): I95.1 - Orthostatic hypotension Status: Acute Assessment and Plan: Improved after fluid hydration. Patient may have autonomic dysfunction contributing to this. Encouraged her to speak with her PCP about possible POTS diagnosis and treatment with midodrine, florinef, etc. Blood pressures currently are 115/65, HR 99 (5) COPD (chronic obstructive pulmonary disease): Qualifiers: COPD type: unspecified COPD Qualified Code(s): J44.9 - Chronic obstructive pulmonary disease, unspecified Code(s): J44.9 - Chronic obstructive pulmonary disease, unspecified Status: Chronic Assessment and Plan: Stable. Continue home inhaler and nebs. DS: Summary Hospital Course Reason for hospitalization: Vertigo, orthostatic hypotension Hospital Course: Patient was admitted with symptoms of vertigo and found to have dysconjugate gaze. She also had orthostatic blood pressures. Her blood pressures improved after fluid boluses. Patient underwent an MRI to rule out any stroke or tumor to attribute to dysconjugate gaze. MRI was negative. It did show small vessel ischemic disease for which she was recommended to start on aspirin and rosuvastatin. Lipid panel was reviewed. She was started on meclizine and worked with Physical therapy for vestibular therapy. Her symptoms have improved and she will be discharged home today in stable condition with outpatient PT orders, prescription for midodrine, and follow-up with her primary care provider. She will be given Isaac hose prior to discharge. Time Spent with Patient Time attestation: Total time spent providing and/or coordinating discharge services:62 Exam Narrative: General: well appearing, thin, appears stated age. HEENT: normocephalic, atraumatic. Mucous membranes moist. EOMI, PERRLA, bilateral sclera anicteric, no conjunctival injection. Neck supple without JVD, lymphadenopathy, or bruit. Respiratory: clear to auscultation bilaterally. No rales/rhonic/wheezes. Cardiovascular: Regular rate and rhythm, normal S1-S2 upon auscultation. No murmurs, rubs, or clicks. PMI is nondisplaced, capillary refill less than 3 second. Abdomen: Soft, round, no pulsatile masses, nondistended and nontender. No rebound, no guarding. No CVA tenderness, no hepatosplenomegaly. Bowel sounds present to all four quadrants. No high pitch or tinkling sounds, resonant to percussion. Extremities: No cyanosis, clubbing, or edema present. Pulses are palpable 2/2. Active ROM to all four extremities. Neuro: Alert and orientated x 4. PERRLA. Cranial nerves 2-12 intact without focal deficit. Skin: Warm, dry, and intact, without rash, erythema, or lesion. Lines: Incisions: Psych: pleasant, cooperative, normal speech, normal affect, no hallucinations, no dysarthria DS: Data Data Completed and Pending Labs on day of dischar
[2024-05-03] MEDS: ENOXAPARIN 40 MG/0.4 ML SYRINGE SUB-Q (09:46)
[2024-05-03] MEDS: ASPIRIN 81 MG ENTERIC TABLET PO (09:46)
[2024-05-03] MEDS: ROSUVASTATIN 20 MG TABLET 40 MG PO (09:46)
[2024-05-03] MEDS: MECLIZINE HCL 25 MG TABLET PO (09:46)
[2024-05-03 10:40] LABS: Alanine Aminotransferase 21 U/L (6-35); Albumin Level 4.3 g/dL (3.5-5.1); Alkaline Phosphatase 77 U/L (38-126); Anion Gap 7 mmol/L (4-12); Aspartate Amino Transferase 39 U/L (14-36); Bilirubin,Total 0.7 mg/dL (0.2-1.3); Blood Urea Nitrogen 9 mg/dL (7-17); Calcium 9.3 mg/dL (8.4-10.2); Carbon Dioxide 27 mmol/L (22-30); Chloride 109 mmol/L (98-107); Estimated CRCL calculation 53 ml/min; Estimated Glomerular Filt Rate > 60; Glucose 132 mg/dL (65-110); Potassium 3.3 mmol/L (3.4-5.0); Sodium 143 mmol/L (137-145)
[2024-05-03 10:42] LABS: Basophils Percent Auto 0.5 % (0.2-1.2); Eosinophils Percent Auto 0.4 % (0-4.4); Hematocrit 40.1 % (37.0-47.0); Hemoglobin 13.6 g/dL (12.0-15.0); Immature Granulocyte Absolute 0.02 K/mm3 (0.00-0.031); Immature Granulocyte Percent A 0.3 % (0-0.5); Lymphocytes Absolute Auto 1.68 K/mm3 (0.9-3.2); Lymphocytes Percent Auto 21.3 % (18.3-44.2); Mean Corpuscular HGB Conc 33.9 g/dl (32-36); Mean Corpuscular Hemoglobin 31.6 pg (26-34); Mean Corpuscular Volume 93.3 fl (80-100); Mean Platelet Volume 9.7 fl (7.4-10.4); Monocytes Absolute Auto 0.7 K/mm3 (0.1-0.6); Monocytes Percent Auto 8.9 % (2.6-8.5); Neutrophils Absolute Auto 5.4 K/mm3 (1.3-6.7); Neutrophils Percent Auto 68.6 % (45.5-73.1); Platelet Count Result 260 k/mm3 (150-375); Red Cell Distribution Width 12.9 % (11.5-14.5); White Blood Count 7.9 K/mm3 (4.5-10.0)
== END 2024-05-03 12:56 | disposition home or self-care (01) ==
LOC: ANHED 14:14 → ANH3MED 05-02 07:10
PROVIDERS: Nurse Practitioner Acute Care; Admitting Provider Internal Medicine; Emergency Provider Physician Assistant; PCP Family Medicine; Visit Provider Internal Medicine
DX: I95.1 Orthostatic hypotension (principal); J18.9 Pneumonia, unspecified organism; J44.0 Chronic obstructive pulmonary disease with (acute) lower respiratory infection; H51.8 Other specified disorders of binocular movement; I67.89 Other cerebrovascular disease; F41.9 Anxiety disorder, unspecified; F32.A Depression, unspecified; Z87.891 Personal history of nicotine dependence; Z79.51 Long term (current) use of inhaled steroids
CPT/HCPCS: 36415; 70496; 70498; 70551; 71046; 80053; 80061; 81001; 83690; 83735; 85025; 87040; 93005; 94640; 96361; 96365; 96372; 96375; 97110; 97116; 97161; 99285; A9270; G0378; J0456; J0696; J1650; J2405; J7030; Q9967

== ENCOUNTER 2025-04-29 09:42 | Outpatient (CLI) | payer OTHER, SELFPAY ==
--- OUTSIDE RECORDS SUMMARY | 2025-04-29 10:33 | XMS_ITS | Referral Summary ---
Author Organization [facility] [place] [address] Address [address] [place] [address] Care Team Providers Care Broke Beater Operator Name Role Phone Jimmie Juárez MD Primary Care Provider Allergies No known active allergies Medications Anoro Ellipta 62.5-25 mcg/actuation blister with device 1 puff daily 01/10/2023 Active sodium, potassium & mag sulfates (SUPREP BOWEL KIT) 17.5-3.13-1.6 gram recon soln as directed 01/11/2023 A ctive albuterol HFA (PROVENTIL HFA,VENTOLIN HFA,PROAIR HFA) 90 mcg/actuation inhaler Inhale 2 puffs every 6 (six) hours as needed for wheezing Active fludrocortisone 0.1 mg tablet Take 1 tablet (0.1 mg total) by mouth daily 90 tablet 3 02/03/2023 Active Active Problems Problem Noted Date Diagnosed Date Hypotension 02/03/2023 Social History Tobacco Use Types Packs/Day Years Used Date Smoking Tobacco: Former Cigarettes Q uit: 11/21/2017 Personal Safety Answer Date Recorded Getting School Help Needed Not on file 02/03 Comments Unknown Sex and Gender Information Value Date Recorded Sex Assigned at Not on file 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 Gender Identity Not on file Sexual Orientation Not on file Last Filed Vital Signs Vital Sign Reading Time Taken Comments Blood Pressure 90/62 02/03/2023 3:54 PM CDT Pulse 79 02/03/2023 3:54 PM CDT Temperature - - Respiratory Rate - - Oxygen Saturation 98% 02/03/2023 3:54 PM CDT Inhaled Oxygen Concentration - - Weight 57.6 kg (127 lb) 02/03/2023 3:54 PM CDT Height 157.5 cm (5' 2) 02/03/2023 3:54 PM CDT Body Mass Index 23.23 02/03/2023 3:54 PM CDT Plan of Treatment Not on file Insurance [employer] [facility] Care Teams Broke Beater Operator Relationship Specialty Start Date End Date Jimmie Juárez MD PCP - General Family Practice 01/07/23
--- OUTSIDE RECORDS SUMMARY | 2025-04-29 10:33 | XMS_ITS | Clinical Summary ---
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 Gender Identity Not on file Sexual Orientation Not on file Obstetrics History Last Filed Vital Signs Vital Sign Reading [...] 02/03/2023 3:54 PM CDT Plan of Treatment Health Maintenance Due Date Last Done Comments Breast Cancer Screening-Mammogram 1960 Cervical Cancer Screening 1960 Colon Cancer Screening-Colonoscopy 1960 Depression Screening 1960 Hepatitis C Screening 1960 Hepatitis B Screening 1978 Regular Well Visit/Exam 18-64 1978 Zoster Vaccine (1 of 2) 2010 Covid-19 Vaccine ( season) 2024 10/24/2022, 12/01/2021, 03/29/2021 Influenza Vaccine (Season Ended) 2025 10/24/2022, 10/22/2021, 08/27/2020, Additional history exists DTaP/Tdap/Td Vaccine (2 - Td or Tdap) 08/27/2030 08/27/2020 Pneumococcal vaccine <65 Aged Out No longer eligible based on patient's age to complete this topic Insurance [employer] [facility] Care Teams Law Reporter Relationship Specialty Start Date End Date Jimmie Juárez MD PCP - General Family Practice 01/07/23
== END 2025-04-29 09:43 | disposition home or self-care (01) ==
LOC: ANHAUDIO 09:43
PROVIDERS: PCP Family Medicine; Visit Provider Otolaryngology Otolaryngology/Facial Plastic Surgery
DX: H90.11 Conductive hearing loss, unilateral, right ear, with unrestricted hearing on the contralateral side (principal); H93.13 Tinnitus, bilateral; H69.81 Other specified disorders of Eustachian tube, right ear; H73.892 Other specified disorders of tympanic membrane, left ear; H93.8X9 Other specified disorders of ear, unspecified ear; R42 Dizziness and giddiness
CPT/HCPCS: 92557; 92567

== ENCOUNTER 2025-06-11 15:39 | Outpatient (CLI) | payer OTHER, SELFPAY ==
--- NOTE | ~2025-06-11 | MM_ITS ---
EXAMINATION: MM screening sugar BI w andrey HISTORY: Screening TECHNIQUE: Craniocaudal and mediolateral oblique 3-D tomosynthesis images were obtained and synthetic 2-D images were generated. CAD analysis was submitted and interpreted. COMPARISON: 03/21/2014 BREAST PARENCHYMAL COMPOSITION: The breasts are heterogeneously dense, which may obscure small masses . FINDINGS: 7.1 mm well-circumscribed asymmetry within the upper outer left breast for which spot compr ession followed by an ultrasound is recommended. The 7 mm opacity previously described within the lower left breast is no longer visualized on the c urrent examination. Indeterminate microcalcifications within the upper slightly outer right breast, an interval change fr om prior for which magnification views are recommended. Stable architectural distortion within the upper slightly outer right breast, likely post excisional biopsy change (patient underwent excisional breast biopsy more than 30 years earlier, yielding benign results). IMPRESSION: 7 mm asymmetry within the upper outer left breast for which spot compression followed by an ultrasoun d is recommended. Indeterminate microcalcifications within the upper slightly outer right breast for which magnificatio n views are recommended. BI-RADS Category 0: Incomplete: Needs additional imaging evaluation. Reviewed, dictated and finalized at location A. IMPRESSION: 7 mm asymmetry within the upper outer left breast for which spot compression fo llowed by an ultrasound is recommended. Indeterminate microcalcifications within the upper slightly outer right breast for which magnification views are recommended. BI-RADS Category 0: Incomplete: Needs additional imaging evaluation.
== END 2025-06-11 15:40 | disposition home or self-care (01) ==
LOC: MICIMG 15:40
PROVIDERS: PCP Family Medicine; Visit Provider Family Medicine
DX: Z12.31 Encounter for screening mammogram for malignant neoplasm of breast (principal); R92.8 Other abnormal and inconclusive findings on diagnostic imaging of breast
CPT/HCPCS: 77063; 77067

== ENCOUNTER 2025-10-04 10:41 | Outpatient (CLI) | payer MEDICARE, SELFPAY ==
--- NOTE | ~2025-10-04 | DEXA_ITS ---
Bone Density Report Name: YASMIN LAUREANO Age: 65 Sex: Female Ethnicity: White Date of : 1960 Indication: postmenopausal; screening for osteoporosis; asthma or emphysema; Referring Provider: JAYA BLAS Study: Bone densitometry was performed. Exam Date: October 04, 2025 Accession number: [id number] Bone Density: Region BMD T-score Z-score Classification AP Spine(L1-L4) 0.979 -0.6 1.1 Normal Femoral Neck (Left) 0.751 -0.9 0.6 Normal Total Hip (Left) 0.815 -1.0 0.2 Normal Femoral Neck (Right) 0.784 -0.6 0.9 Normal Total Hip (Right) 0.844 -0.8 0.4 Normal Total Hip Mean 0.829 -0.9 0.3 Normal World Health Organization criteria for BMD impression classify patients as: Normal (T-score at or above -1.0), Osteopenia (T-score between -1.0 and -2.5), or Osteoporosis (T-score at or below -2.5). 10-year Fracture Risk: FRAX not reported because: All T-scores for Spine Total, Hip Total, Femoral Neck at or above -1.0 Clinical Information Provided by Patient: Has the following medical conditions: Asthma or Emphysema Patient maximum height was 62.0 Menopause Age: 50 No regular weight bearing exercise Does not regularly consume dairy products Drinks caffeinated beverages Onset of menses at age 11 Number of children 1 Impression: The patient has normal bone mass. Discussion: BONE DENSITY IS ABOVE THE MINIMUM DESIRABLE LEVEL AT ALL SKELETAL SITES TESTED. This patient?s bone mineral density is above the minimum desirable level (T-score -1.0 or better) at all sites measured. The patient should follow a healthful lifestyle (good nutrition with adequate calcium and vitamin D, and appropriate weight-bearing exercise). Follow-Up: Consider repeating this study in 5 years or sooner if there is some new clinical indication. Reported by: LEONARD on 10/04/2025 11:22:00 AM. Reviewed, dictated and finalized at location A.
== END 2025-10-04 10:42 | disposition home or self-care (01) ==
LOC: ANHFOHIMG 10:42
PROVIDERS: PCP Family Medicine; Visit Provider Family Medicine
DX: Z13.820 Encounter for screening for osteoporosis (principal); Z78.0 Asymptomatic menopausal state
CPT/HCPCS: 77080

== ENCOUNTER 2025-11-06 08:24 | Outpatient (CLI) | payer MEDICARE, SELFPAY ==
--- NOTE | ~2025-11-06 | MMUS_ITS ---
EXAMINATION: MM diagnostic sugar BI w andrey, US breast LT limited INDICATION: 65-year old female; BI-RADS 0, callback from screening to evaluate left breast mass and right breast calcifications. COMPARISON: 06/11/2025 and 03/21/2014 TECHNIQUE: Digital breast tomosynthesis True lateral, magnification views of the right breast and spot compression CC and MLO views of the LEFT breast were obtained. FINDINGS: The breasts are heterogeneously dense, which may obscure small masses. Linear branching calcifications that spans 3.2 x 2.9 cm area persists on magnification views in the superior central at middle to posterior depth within the right breast. There are 2 groups of calcifications seen within the left breast that included a group of pleomorphic calcifications that spans 0.7 cm in the superior lateral, middle depth and a second group of calcification in the inferior central at middle depth that spans 0.8 cm. The asymmetry of concern in the upper outer left breast persists as a circumscribed mass. Ultrasound was performed for further evaluation. LEFT BREAST ULTRASOUND FINDINGS: Targeted evaluation of the area of concern was completed. There is a 0.7 cm anechoic mass at 12:00, 2 cm FN that correlates to the area of Mammographic finding. IMPRESSION: 1. Suspicious right breast calcifications that spans 3.2 cm in the superior central location. Biopsy is recommended. 2. 2. Separate groups of indeterminate calcifications within the left breast superior lateral and inferior central locations respectively. Biopsy is recommended. 3. Benign LEFT breast cyst correlates to mammographic finding. No further investigation necessary. RECOMMENDATION: 1. Stereotactic core needle biopsy of suspicious right breast calcifications. 2. Stereotactic core needle biopsy of 2 groups of indeterminate left breast calcifications. BI-RADS 4, SUSPICIOUS Reviewed, dictated and finalized at location A. SCAPING CREW LEADER IMPRESSION: 1. Suspicious right breast calcifications that spans 3.2 cm in the superior ce ntral location. Biopsy is recommended. 2. 2. Separate groups of indeterminate calcifications within the left breast s uperior lateral and inferior central locations respectively. Biopsy is recommen ded. 3. Benign LEFT breast cyst correlates to mammographic finding. No further inve stigation necessary. RECOMMENDATION: 1. Stereotactic core needle biopsy of suspicious right breast calcifications. 2. Stereotactic core needle biopsy of 2 groups of indeterminate left breast donte cifications. BI-RADS 4, SUSPICIOUS
== END 2025-11-06 08:25 | disposition home or self-care (01) ==
LOC: MICIMG 08:24
PROVIDERS: PCP Family Medicine; Visit Provider Nurse Practitioner Family
DX: R92.1 Mammographic calcification found on diagnostic imaging of breast (principal); N60.02 Solitary cyst of left breast; R92.8 Other abnormal and inconclusive findings on diagnostic imaging of breast
CPT/HCPCS: 76642; 77062; 77066; G0279